=== PATIENT | male | born 1940 | race Caucasian/White ===

== ENCOUNTER 2021-01-27 09:52 | Inpatient (IN) ==
[2021-01-27] MEDS ORDERED: Isovue-370 500 ML BOTTLE IVP ONE (10:04)
[2021-01-27 10:32] LABS: Prothrombin Time 11.6 Seconds (9.4-12.1)
[2021-01-27 10:35] LABS: Activated Partial Thrombo Time 33.8 Seconds (26.0-36.0); Hematocrit 44.2 % (37.5-50.1); Hemoglobin 14.9 g/dL (12.9-16.9); Mean Corpuscular HGB Conc 33.7 g/dL (31.6-35.5); Mean Corpuscular Hemoglobin 31.8 pg (28.0-33.3); Mean Corpuscular Volume 94.2 fL (83.0-100.0); Mean Platelet Volume 10.2 fL (9.4-12.4); Platelet Count 240 K/mcL (140-400); Red Blood Count 4.69 M/mcL (4.19-5.50); Red Cell Distribution Width 13.1 % (11.5-14.5); White Blood Count 10.8 K/mcL (4.3-11.1)
[2021-01-27 10:47] LABS: BUN/Creatinine Ratio 17 (6-26); Blood Urea Nitrogen 17 mg/dL (8-23); Calcium 9.4 mg/dL (8.6-10.3); Carbon Dioxide 25 mEq/L (23-29); Chloride 104 mEq/L (98-107); Glucose 156 mg/dL (70-105); Osmolality,Calculated 287 (280-300); Potassium 4.4 mEq/L (3.5-5.1); Sodium 136 mEq/L (136-145); eGFR For African Americans > 60 (> 60); eGFR For Non-African Americans > 60 (> 60)
[2021-01-27 10:48] LABS: Troponin I < 0.03 ng/mL (< 0.04)
[2021-01-27] MEDS ORDERED: Naloxone 0.4 MG/ML INJ IVP PRN (11:39)
[2021-01-27] MEDS ORDERED: Perflutren Lipid Microsphere 1.3 ML in 0.9 % Sodium Chloride 8.7 ML IVP PRN (11:42)
[2021-01-27] MEDS: *HR* Heparin 5,000 UNIT/ML VIAL SQ SCH (16:24)
[2021-01-27] MEDS ORDERED: Ipratropium/Albuterol Neb 3 ML IH PRN (18:15)
[2021-01-28] MEDS: *HR* Heparin 5,000 UNIT/ML VIAL SQ SCH ×4 (00:12→23:36)
[2021-01-28 02:51] LABS: Hematocrit 40.6 % (37.5-50.1); Hemoglobin 13.5 g/dL (12.9-16.9); Immature Granulocytes % 0.5 % (0-4); Lymphocytes % 23.4 %; Mean Corpuscular HGB Conc 33.3 g/dL (31.6-35.5); Mean Corpuscular Hemoglobin 31.4 pg (28.0-33.3); Mean Corpuscular Volume 94.4 fL (83.0-100.0); Mean Platelet Volume 10.2 fL (9.4-12.4); Monocytes % 10.8 %; Platelet Count 223 K/mcL (140-400); Red Cell Distribution Width 13.1 % (11.5-14.5); White Blood Count 8.3 K/mcL (4.3-11.1)
[2021-01-28 02:52] LABS: Basophils # 0.1 K/mcL (0.0-0.2); Basophils % 0.7 %; Eosinophils # 0.5 K/mcL (0.0-0.6); Eosinophils % 5.6 %; Lymphocytes # 1.9 K/mcL (0.6-4.6); Monocytes # 0.9 K/mcL (0.0-1.3); Neutrophils # 4.9 K/mcL (1.6-8.9)
[2021-01-28 03:01] LABS: Estimated Average Glucose 120 mg/dl; Hemoglobin A1C 5.8 %
[2021-01-28 03:09] LABS: BUN/Creatinine Ratio 20 (6-26); Blood Urea Nitrogen 20 mg/dL (8-23); Carbon Dioxide 25 mEq/L (23-29); Chloride 104 mEq/L (98-107); Glucose 99 mg/dL (70-105); Osmolality,Calculated 285 (280-300); Sodium 136 mEq/L (136-145); eGFR For African Americans > 60 (> 60); eGFR For Non-African Americans > 60 (> 60)
[2021-01-28] MEDS: Budesonide/Formoterol 80/4.5 1 PUFF INH IH SCH ×2 (07:26→19:50)
[2021-01-28] MEDS: carvediloL 6.25 MG TABLET PO SCH (17:55)
[2021-01-29] MEDS: Budesonide/Formoterol 80/4.5 1 PUFF INH IH SCH (07:36)
[2021-01-29] MEDS: *HR* Heparin 5,000 UNIT/ML VIAL SQ SCH ×2 (08:17→16:47)
[2021-01-29] MEDS: carvediloL 6.25 MG TABLET PO SCH ×2 (08:17→16:45)
[2021-01-29] MEDS ORDERED: lisinopriL 5 MG TABLET PO SCH (09:00)
[2021-01-29] MEDS ORDERED: 0.9 % Sodium Chloride 500 ML IVC ONE (10:55)
[2021-01-29] MEDS ORDERED: Lidocaine Viscous Oral Soln 15 ML SOLUTION MM PRN (10:55)
[2021-01-29] MEDS: *HR* Midazolam HCl 5 MG/5 ML VIAL IVP PRN ×2 (11:10→11:15)
[2021-01-29] MEDS: *HR* FentaNYL (PF) 100 MCG/2 ML VIAL IVP PRN ×2 (11:10→11:15)
[2021-01-29 15:24] VITALS: BP 142/86; PULSE 92; TEMP 97.7; O2SAT 93
== END 2021-01-29 18:18 | disposition home or self-care (01) | DRG 65 ==
LOC: EMEROOARM 09:52 → 3BNU 09:52 → SUATTDRO 19:42
PROVIDERS: ADMIT Internal Medicine; ATTEND Internal Medicine

== ENCOUNTER 2021-07-02 07:45 | Inpatient (IN) ==
[2021-07-02] MEDS ORDERED: 0.9 % Sodium Chloride 1,000 ML ONE (14:30)
[2021-07-02] MEDS ORDERED: Heparin 1,000 UNITS/500 mL 500 ML ONE ×2 (15:13→15:26)
[2021-07-02] MEDS ORDERED: *HR* Heparin 10,000 UNIT/10 ML VIAL ONE (15:16)
[2021-07-02] MEDS ORDERED: ISOVUE-370 200 ML INFUS..BTL ONE (15:16)
[2021-07-02] MEDS ORDERED: *HR* FentaNYL (PF) 100 MCG/2 ML VIAL ONE (15:23)
[2021-07-02] MEDS ORDERED: *HR* Midazolam HCl 2 MG/2 ML VIAL ONE (15:23)
[2021-07-02] MEDS ORDERED: *HR* Heparin 5,000 UNIT/ML VIAL IVP PRN ×2 (16:58)
[2021-07-02] MEDS ORDERED: Heparin 25,000UNIT/250ML 1/2NS 25,000 UNIT/250 ML IV.SOLN IVC SCH (17:00)
[2021-07-02] MEDS ORDERED: Naloxone 0.4 MG/ML INJ IVP PRN (18:13)
[2021-07-02] MEDS ORDERED: Acetaminophen 325 MG TABLET PO PRN (18:13)
[2021-07-02] MEDS ORDERED: 0.9 % Sodium Chloride 1,000 ML IVC SCH (18:15)
[2021-07-02 18:51] LABS: Basophils % 0.5 %; Eosinophils # 0.2 K/mcL (0.0-0.6); Eosinophils % 2.8 %; Hematocrit 40.7 % (37.5-50.1); Hemoglobin 13.4 g/dL (12.9-16.9); Immature Granulocytes % 0.1 % (0-4); Lymphocytes # 2.2 K/mcL (0.6-4.6); Lymphocytes % 29.4 %; Mean Corpuscular HGB Conc 32.9 g/dL (31.6-35.5); Mean Corpuscular Hemoglobin 30.5 pg (28.0-33.3); Mean Corpuscular Volume 92.5 fL (83.0-100.0); Monocytes # 0.7 K/mcL (0.0-1.3); Monocytes % 8.8 %; Neutrophils # 4.3 K/mcL (1.6-8.9); Platelet Count 219 K/mcL (140-400); Red Cell Distribution Width 13.2 % (11.5-14.5); Segmented Neutrophils % 58.4 %; White Blood Count 7.4 K/mcL (4.3-11.1)
[2021-07-02 18:57] LABS: Estimated Average Glucose 126 mg/dl
[2021-07-02] MEDS ORDERED: Ipratropium/Albuterol Neb 3 ML IH PRN (19:01)
[2021-07-02 19:09] LABS: BUN/Creatinine Ratio 19 (6-26); Blood Urea Nitrogen 17 mg/dL (8-23); Calcium 8.9 mg/dL (8.6-10.3); Carbon Dioxide 27 mEq/L (23-29); Chloride 104 mEq/L (98-107); Cholesterol 121 mg/dL (< 200); Glucose 93 mg/dL (70-105); HDL Cholesterol 41 mg/dL (40-59); LDL Cholesterol,Calculated 71 mg/dL (< 100); Magnesium 1.9 mg/dL (1.6-2.6); Osmolality,Calculated 285 (280-300); Phosphorous 3.1 mg/dL (2.7-4.5); Potassium 3.9 mEq/L (3.5-5.1); Sodium 137 mEq/L (136-145); Triglycerides 44 mg/dL (< 150); eGFR For African Americans > 60 (> 60); eGFR For Non-African Americans > 60 (> 60)
[2021-07-02] MEDS ORDERED: Budesonide/Formoterol 160/4.5 1 PUFF INH IH ONE (19:30)
[2021-07-02] MEDS: Budesonide/Formoterol 160/4.5 1 PUFF INH IH SCH (19:34)
[2021-07-02 20:44] LABS: INR 1.3; Prothrombin Time 14.7 Seconds (9.4-12.1)
[2021-07-02 21:07] LABS: Activated Partial Thrombo Time > 360.0 Seconds (26.0-36.0)
[2021-07-02 21:42] LABS: Bilirubin,Urine Negative (Negative); Blood,Urine Large (Negative); Clarity,Urine Clear (Clear); Color,Urine Yellow (Yellow); Glucose,Urine (UA) Normal (Normal); Ketones,Urine Negative (Negative); Leukocyte Esterase,Urine Negative (Negative); Mucus,Urine Few per lpf (None-Few); Nitrite,Urine Negative (Negative); Protein,Urine 50 mg/dL (Neg-Trace); RBC,Urine TNTC per hpf (0-3); Specific Gravity,Urine > 1.030 (1.010-1.025); Squamous Epithelial Cell,Urine Few per hpf (None-Few)
[2021-07-02] MEDS: Chlorhexidine Rinse 15 ML MOUTHWASH MM SCH (21:42)
[2021-07-02 23:09] LABS: Adenovirus Not Detected (Not Detect); Coronavirus 229E Not Detected (Not Detect); Coronavirus HKU1 Not Detected (Not Detect); Coronavirus NL63 Not Detected (Not Detect); Coronavirus OC43 Not Detected (Not Detect); Human Metapneumovirus Not Detected (Not Detect); SARS-CoV-2 Not Detected (Not Detect)
[2021-07-02 23:10] LABS: Bordetella Pertussis Not Detected (Not Detect); Chlamydophila pneumoniae Not Detected (Not Detect); Human Rhinovirus/Enterovirus Not Detected (Not Detect); Influenza A Subtype 2009 H1 Not Detected (Not Detect); Influenza B Not Detected (Not Detect); Mycoplasma pneumoniae Not Detected (Not Detect); Parainfluenza Virus 1 Not Detected (Not Detect); Parainfluenza Virus 2 Not Detected (Not Detect); Parainfluenza Virus 3 Not Detected (Not Detect); Parainfluenza Virus 4 Not Detected (Not Detect); Respiratory Syncytial Virus Not Detected (Not Detect)
[2021-07-03 01:13] LABS: Basophils # 0.1 K/mcL (0.0-0.2); Basophils % 0.6 %; Eosinophils # 0.4 K/mcL (0.0-0.6); Eosinophils % 3.8 %; Hematocrit 40.9 % (37.5-50.1); Hemoglobin 13.4 g/dL (12.9-16.9); Immature Granulocytes % 0.2 % (0-4); Lymphocytes % 21.3 %; Mean Corpuscular HGB Conc 32.8 g/dL (31.6-35.5); Mean Corpuscular Hemoglobin 30.6 pg (28.0-33.3); Mean Corpuscular Volume 93.4 fL (83.0-100.0); Mean Platelet Volume 10.2 fL (9.4-12.4); Monocytes # 0.8 K/mcL (0.0-1.3); Monocytes % 8.8 %; Neutrophils # 6.2 K/mcL (1.6-8.9); Platelet Count 207 K/mcL (140-400); Red Blood Count 4.38 M/mcL (4.19-5.50); Red Cell Distribution Width 13.3 % (11.5-14.5); Segmented Neutrophils % 65.3 %; White Blood Count 9.5 K/mcL (4.3-11.1)
[2021-07-03 01:33] LABS: BUN/Creatinine Ratio 16 (6-26); Blood Urea Nitrogen 21 mg/dL (8-23); Calcium 9.1 mg/dL (8.6-10.3); Carbon Dioxide 28 mEq/L (23-29); Chloride 104 mEq/L (98-107); Glucose 107 mg/dL (70-105); Magnesium 1.9 mg/dL (1.6-2.6); Osmolality,Calculated 287 (280-300); Phosphorous 3.7 mg/dL (2.7-4.5); Sodium 137 mEq/L (136-145); eGFR For African Americans > 60 (> 60); eGFR For Non-African Americans 53 (> 60)
[2021-07-03] MEDS ORDERED: Aspirin 81 MG TAB.CHEW PO ONE (06:00)
[2021-07-03] MEDS: Chlorhexidine Rinse 15 ML MOUTHWASH MM SCH ×2 (06:01→21:00)
[2021-07-03] MEDS ORDERED: NiCARdipine 2.5 MG/10 ML Syringe IVPB ONE (06:14)
[2021-07-03] MEDS ORDERED: Protamine Sulfate 250 MG/25 ML VIAL IVP ONE (06:18)
[2021-07-03] MEDS ORDERED: D5% in Water 500 ML ONE (06:18)
[2021-07-03] MEDS ORDERED: *HR* Phenylephrine 10 MG/ML VIAL ONE ×2 (06:19→10:37)
[2021-07-03] MEDS ORDERED: niCARdipine 40 MG/200 ML MLS IVC ONE (06:19)
[2021-07-03] MEDS ORDERED: *HR* Rocuronium Bromide 50 MG/5 ML VIAL ONE (06:19)
[2021-07-03] MEDS ORDERED: *HR* Etomidate 20 MG/10 ML AMPUL IVP ONE (06:24)
[2021-07-03] MEDS ORDERED: Tranexamic Acid 1,000 MG/10 ML VIAL ONE (06:24)
[2021-07-03] MEDS ORDERED: *HR* DOBUTamine HCl 250 MG/20 ML VIAL ONE (06:24)
[2021-07-03] MEDS ORDERED: Calcium Gluconate 1,000 MG/10 ML VIAL ONE (06:38)
[2021-07-03] MEDS ORDERED: Vancomycin 1,000 MG VIAL ONE (06:39)
[2021-07-03] MEDS ORDERED: Papaverine 60 MG/2 ML VIAL IVP ONE (06:39)
[2021-07-03] MEDS ORDERED: *HR* Midazolam HCl 5 MG/5 ML VIAL IVP ONE (06:43)
[2021-07-03] MEDS ORDERED: *HR* FentaNYL (PF) 250 MCG/5 ML VIAL ONE (06:43)
[2021-07-03] MEDS ORDERED: EPHEDrine 50 MG/ML VIAL ONE (06:43)
[2021-07-03] MEDS ORDERED: Heparin 15,000 UNIT in 0.9 % Sodium Chloride 500 ML IV ONE (07:45)
[2021-07-03] MEDS ORDERED: del Nido Cardioplegia Solution PF ONE (07:45)
[2021-07-03] MEDS ORDERED: del Nido Cardioplegia Solution PF SCH (07:45)
[2021-07-03] MEDS ORDERED: Buckersberg's Blood Cardioplegia PF SCH (07:45)
[2021-07-03] MEDS ORDERED: Norepinephrine 4 MG in 0.9 % Sodium Chloride 250 ML IVC PRN (07:45)
[2021-07-03] MEDS ORDERED: CeFAZolin Syr 2,000MG/20 ML 2,000 MG/20 ML SYRINGE IVPB ONE (08:00)
[2021-07-03] MEDS ORDERED: NON-FORMULARY MEDICATION 1 EACH EACH (Umeclidinium Bromide [Incruse Ellipta] 62.5 MCG Blst IH SCH (09:00)
[2021-07-03] MEDS: Tiotropium 10 INH DOSE IH SCH (09:19)
[2021-07-03] MEDS: Budesonide/Formoterol 160/4.5 1 PUFF INH IH SCH ×2 (09:20→20:06)
[2021-07-03 09:52] LABS: ABG Base Excess 0 mEq/L (-2 to 3); ABG Chloride 104 mEq/L (98-107); ABG Glucose 123 mg/dL (60-95); ABG HCO3 27 mEq/L (21-27); ABG Ionized Calcium 1.26 mmol/L (1.15-1.35); ABG Oxygen Saturation 98 % (95-98); ABG PCO2 52 mmHg (35-45); ABG PH 7.32 pH Units (7.32-7.45); ABG PO2 117 mmHg (85-104); ABG TCO2 29 mEq/L (20-26)
[2021-07-03] MEDS ORDERED: Albumin Human 5% 50.0 GM/1,000 ML IV.SOLN ONE (10:11)
[2021-07-03 10:21] LABS: ABG Base Excess -2 mEq/L (-2 to 3); ABG Chloride 104 mEq/L (98-107); ABG Glucose 167 mg/dL (60-95); ABG HCO3 24 mEq/L (21-27); ABG Ionized Calcium 1.22 mmol/L (1.15-1.35); ABG Oxygen Saturation 99 % (95-98); ABG PCO2 44 mmHg (35-45); ABG PH 7.34 pH Units (7.32-7.45); ABG PO2 141 mmHg (85-104); ABG TCO2 25 mEq/L (20-26)
[2021-07-03] MEDS ORDERED: Albumin Human 5% 12.5 GM/250 ML IV.SOLN ONE (11:11)
[2021-07-03 11:21] LABS: ABG Base Excess -3 mEq/L (-2 to 3); ABG Chloride 104 mEq/L (98-107); ABG Glucose 209 mg/dL (60-95); ABG HCO3 23 mEq/L (21-27); ABG Ionized Calcium 1.21 mmol/L (1.15-1.35); ABG Oxygen Saturation 100 % (95-98); ABG PCO2 41 mmHg (35-45); ABG PH 7.36 pH Units (7.32-7.45); ABG PO2 189 mmHg (85-104); ABG TCO2 24 mEq/L (20-26)
[2021-07-03] MEDS ORDERED: *HR* Vasopressin 20 UNIT/ML VIAL ONE (11:31)
[2021-07-03 11:42] LABS: ABG Base Excess -6 mEq/L (-2 to 3); ABG Chloride 107 mEq/L (98-107); ABG Glucose 208 mg/dL (60-95); ABG HCO3 21 mEq/L (21-27); ABG Ionized Calcium 1.15 mmol/L (1.15-1.35); ABG Oxygen Saturation 94 % (95-98); ABG PCO2 44 mmHg (35-45); ABG PH 7.28 pH Units (7.32-7.45); ABG PO2 81 mmHg (85-104); ABG TCO2 22 mEq/L (20-26)
[2021-07-03] MEDS: Albumin Human 5% 12.5 GM/250 ML IV.SOLN IVPB PRN ×6 (12:35→22:59)
[2021-07-03 12:53] LABS: ABG Base Excess -2 mEq/L (-2 to 3); ABG HCO3 24 mEq/L (21-27); ABG Oxygen Saturation 92 % (95-98); ABG PCO2 43 mmHg (35-45); ABG PH 7.35 pH Units (7.32-7.45); ABG PO2 66 mmHg (85-104); ABG TCO2 25 mEq/L (20-26); Blood Gas Modality ASSIST CONTROL; Blood Gas VT 500 cc
[2021-07-03] MEDS ORDERED: *HR* Dextrose 50 % in Water (Syg) 50 ML SYRINGE IVP PRN (13:04)
[2021-07-03] MEDS ORDERED: Potassium Chloride 40 MEQ/200 ML BAG IVPB PRN (13:04)
[2021-07-03] MEDS ORDERED: Calcium Gluconate 1gm/50mL 1 GM/50 ML BAG IVPB PRN (13:04)
[2021-07-03] MEDS ORDERED: *HR* Promethazine 25 MG/ML VIAL IM PRN (13:04)
[2021-07-03] MEDS ORDERED: Ondansetron 4 MG/2 ML VIAL IVP PRN (13:04)
[2021-07-03] MEDS ORDERED: Insulin Regular, Human 100 UNIT/ML IV PRN (13:04)
[2021-07-03 13:22] LABS: Basophils % 0.2 %; Eosinophils # 0.2 K/mcL (0.0-0.6); Eosinophils % 1.6 %; Hematocrit 30.9 % (37.5-50.1); Immature Granulocytes % 0.6 % (0-4); Lymphocytes # 1.4 K/mcL (0.6-4.6); Lymphocytes % 9.7 %; Mean Corpuscular Hemoglobin 30.3 pg (28.0-33.3); Mean Corpuscular Volume 94.5 fL (83.0-100.0); Mean Platelet Volume 10.2 fL (9.4-12.4); Monocytes # 0.9 K/mcL (0.0-1.3); Monocytes % 6.6 %; Neutrophils # 11.5 K/mcL (1.6-8.9); Platelet Count 132 K/mcL (140-400); Red Blood Count 3.27 M/mcL (4.19-5.50); Red Cell Distribution Width 13.2 % (11.5-14.5); Segmented Neutrophils % 81.3 %; White Blood Count 14.2 K/mcL (4.3-11.1)
[2021-07-03 13:25] LABS: Hemoglobin 9.9 g/dL (12.9-16.9)
[2021-07-03 13:31] LABS: ABG Base Excess -4 mEq/L (-2 to 3); ABG HCO3 22 mEq/L (21-27); ABG Oxygen Saturation 99 % (95-98); ABG PCO2 44 mmHg (35-45); ABG PH 7.31 pH Units (7.32-7.45); ABG PO2 158 mmHg (85-104); ABG TCO2 24 mEq/L (20-26)
[2021-07-03 13:34] LABS: INR 1.4; Prothrombin Time 15.5 Seconds (9.4-12.1)
[2021-07-03 13:37] LABS: Activated Partial Thrombo Time 29.7 Seconds (26.0-36.0)
[2021-07-03 13:45] LABS: BUN/Creatinine Ratio 22 (6-26); Blood Urea Nitrogen 22 mg/dL (8-23); Calcium 7.9 mg/dL (8.6-10.3); Carbon Dioxide 23 mEq/L (23-29); Chloride 107 mEq/L (98-107); Glucose 180 mg/dL (70-105); Magnesium 1.5 mg/dL (1.6-2.6); Osmolality,Calculated 292 (280-300); Sodium 137 mEq/L (136-145); eGFR For African Americans > 60 (> 60); eGFR For Non-African Americans > 60 (> 60)
[2021-07-03] MEDS: *HR* FentaNYL (PF) 100 MCG/2 ML VIAL IVP PRN ×4 (14:25→22:22)
[2021-07-03] MEDS: Calcium Gluconate 1gm/50mL 1 GM/50 ML BAG IVPB PRN ×3 (14:42→16:06)
[2021-07-03] MEDS: CeFAZolin 2 GM/120 ML BAG IVPB SCH (16:07)
[2021-07-03 16:35] LABS: ABG Base Excess -2 mEq/L (-2 to 3); ABG HCO3 23 mEq/L (21-27); ABG Oxygen Saturation 96 % (95-98); ABG PCO2 37 mmHg (35-45); ABG PO2 85 mmHg (85-104); ABG TCO2 24 mEq/L (20-26); Blood Gas Modality ASSIST CONTROL; Blood Gas VT 500 cc
[2021-07-03] MEDS ORDERED: Heparin 1,000 UNITS/500 mL IV.SOLN IR ONE (16:59)
[2021-07-03] MEDS ORDERED: *HR* Heparin 10,000 UNIT/10 ML VIAL IR ONE (16:59)
[2021-07-03] MEDS ORDERED: D5% in Water 250 ML IV BAG IV ONE (16:59)
[2021-07-03] MEDS: *HR* OxyCODONE/APAP 5/325 TABLET PO PRN (18:01)
[2021-07-03] MEDS: Norepinephrine 4 MG/254 ML IV.SOLN IVC SCH (18:35)
[2021-07-03 20:53] LABS: ABG Base Excess -2 mEq/L (-2 to 3); ABG HCO3 23 mEq/L (21-27); ABG Oxygen Saturation 93 % (95-98); ABG PCO2 39 mmHg (35-45); ABG PH 7.37 pH Units (7.32-7.45); ABG PO2 69 mmHg (85-104); ABG TCO2 24 mEq/L (20-26); Blood Gas Pressure Support 7 cm H2O
[2021-07-03 22:52] LABS: ABG Base Excess -2 mEq/L (-2 to 3); ABG HCO3 23 mEq/L (21-27); ABG Oxygen Saturation 95 % (95-98); ABG PCO2 38 mmHg (35-45); ABG PH 7.38 pH Units (7.32-7.45); ABG PO2 78 mmHg (85-104); ABG TCO2 24 mEq/L (20-26)
[2021-07-04] MEDS: *HR* OxyCODONE/APAP 5/325 TABLET PO PRN ×3 (00:11→11:09)
[2021-07-04] MEDS: CeFAZolin 2 GM/120 ML BAG IVPB SCH (00:11)
[2021-07-04] MEDS: *HR* FentaNYL (PF) 100 MCG/2 ML VIAL IVP PRN (02:10)
[2021-07-04 03:32] LABS: Basophils % 0.3 %; Eosinophils % 0.1 %; Hematocrit 24.1 % (37.5-50.1); Immature Granulocytes % 0.3 % (0-4); Lymphocytes # 0.8 K/mcL (0.6-4.6); Lymphocytes % 9.4 %; Mean Corpuscular HGB Conc 33.2 g/dL (31.6-35.5); Mean Corpuscular Hemoglobin 30.4 pg (28.0-33.3); Mean Corpuscular Volume 91.6 fL (83.0-100.0); Monocytes # 0.9 K/mcL (0.0-1.3); Monocytes % 9.9 %; Neutrophils # 7.2 K/mcL (1.6-8.9); Platelet Count 108 K/mcL (140-400); Red Blood Count 2.63 M/mcL (4.19-5.50); Red Cell Distribution Width 13.4 % (11.5-14.5)
[2021-07-04 03:43] LABS: INR 1.4; Prothrombin Time 15.3 Seconds (9.4-12.1)
[2021-07-04 03:45] LABS: Activated Partial Thrombo Time 27.3 Seconds (26.0-36.0)
[2021-07-04 03:49] LABS: BUN/Creatinine Ratio 20 (6-26); Blood Urea Nitrogen 21 mg/dL (8-23); Calcium 8.5 mg/dL (8.6-10.3); Carbon Dioxide 25 mEq/L (23-29); Chloride 106 mEq/L (98-107); Glucose 140 mg/dL (70-105); Magnesium 1.7 mg/dL (1.6-2.6); Osmolality,Calculated 287 (280-300); Phosphorous 3.2 mg/dL (2.7-4.5); Potassium 3.7 mEq/L (3.5-5.1); Sodium 136 mEq/L (136-145); eGFR For African Americans > 60 (> 60); eGFR For Non-African Americans > 60 (> 60)
[2021-07-04] MEDS ORDERED: Amiodarone Premix 150 MG/100 ML BAG IVPB ONE (05:58)
[2021-07-04] MEDS ORDERED: Albumin Human 5% 12.5 GM/250 ML IV.SOLN IVPB ONE (06:08)
[2021-07-04] MEDS ORDERED: Albumin Human 5% 12.5 GM/250 ML IV.SOLN ONE (06:11)
[2021-07-04] MEDS: Norepinephrine 4 MG/254 ML IV.SOLN IVC SCH ×3 (06:13→23:09)
[2021-07-04] MEDS ORDERED: 0.9 % Sodium Chloride 250 ML ONE (06:27)
[2021-07-04] MEDS: Budesonide/Formoterol 160/4.5 1 PUFF INH IH SCH ×2 (07:57→20:58)
[2021-07-04] MEDS: Tiotropium 10 INH DOSE IH SCH (07:59)
[2021-07-04] MEDS: Chlorhexidine Rinse 15 ML MOUTHWASH MM SCH ×2 (08:48→20:30)
[2021-07-04] MEDS ORDERED: Aspirin Enteric Coated 81 MG Tablet PO SCH (09:00)
[2021-07-04] MEDS ORDERED: Pantoprazole 40 MG VIAL IVP SCH (09:00)
[2021-07-04] MEDS ORDERED: Furosemide 40 MG/4 ML VIAL IVP ONE (09:30)
[2021-07-04] MEDS ORDERED: Bumetanide 1 MG/4 ML VIAL IVP ONE (09:30)
[2021-07-04] MEDS ORDERED: Insulin LISPRO 300 UNITS/3 ML VIAL SUBQ SCH ×2 (16:30→21:00)
[2021-07-04] MEDS: *HR* Heparin 5,000 UNIT/ML VIAL SQ SCH (23:09)
[2021-07-05] MEDS: *HR* OxyCODONE/APAP 5/325 TABLET PO PRN (01:36)
[2021-07-05 03:36] LABS: Basophils % 0.1 %
[2021-07-05 03:38] LABS: Eosinophils # 0.1 K/mcL (0.0-0.6); Eosinophils % 1.4 %; Hematocrit 25.2 % (37.5-50.1); Hemoglobin 8.4 g/dL (12.9-16.9); Immature Granulocytes % 0.4 % (0-4); Immature Platelets 5.9 % (1.1-6.1); Lymphocytes % 12.7 %; Mean Corpuscular HGB Conc 33.3 g/dL (31.6-35.5); Mean Corpuscular Hemoglobin 30.1 pg (28.0-33.3); Mean Corpuscular Volume 90.3 fL (83.0-100.0); Monocytes # 0.9 K/mcL (0.0-1.3); Neutrophils # 5.8 K/mcL (1.6-8.9); Platelet Count 107 K/mcL (140-400); Red Blood Count 2.79 M/mcL (4.19-5.50); Red Cell Distribution Width 14.6 % (11.5-14.5); Segmented Neutrophils % 74.4 %; White Blood Count 7.8 K/mcL (4.3-11.1)
[2021-07-05 03:56] LABS: BUN/Creatinine Ratio 22 (6-26); Blood Urea Nitrogen 22 mg/dL (8-23); Calcium 8.1 mg/dL (8.6-10.3); Carbon Dioxide 27 mEq/L (23-29); Chloride 103 mEq/L (98-107); Glucose 129 mg/dL (70-105); Magnesium 2.1 mg/dL (1.6-2.6); Osmolality,Calculated 283 (280-300); Potassium 3.7 mEq/L (3.5-5.1); Sodium 134 mEq/L (136-145); eGFR For African Americans > 60 (> 60); eGFR For Non-African Americans > 60 (> 60)
[2021-07-05] MEDS: *HR* Heparin 5,000 UNIT/ML VIAL SQ SCH ×3 (05:37→22:00)
[2021-07-05] MEDS: Budesonide/Formoterol 160/4.5 1 PUFF INH IH SCH (08:03)
[2021-07-05] MEDS ORDERED: Acetaminophen 325 MG TABLET PO PRN (08:04)
[2021-07-05] MEDS ORDERED: Naloxone 0.4 MG/ML INJ IVP PRN (08:04)
[2021-07-05] MEDS ORDERED: Ondansetron 4 MG/2 ML VIAL IVP PRN (08:04)
[2021-07-05] MEDS ORDERED: *HR* OxyCODONE/APAP 5/325 TABLET PO PRN (08:04)
[2021-07-05] MEDS ORDERED: *HR* Dextrose 50 % in Water (Syg) 50 ML SYRINGE IVP PRN (08:04)
[2021-07-05] MEDS: Tiotropium 10 INH DOSE IH SCH (08:06)
[2021-07-05] MEDS: Aspirin Enteric Coated 81 MG Tablet PO SCH (08:48)
[2021-07-05] MEDS ORDERED: Pantoprazole 40 MG VIAL IVP SCH (09:00)
[2021-07-05] MEDS: Insulin LISPRO 300 UNITS/3 ML VIAL SUBQ SCH ×3 (12:37→19:56)
[2021-07-05] MEDS ORDERED: Furosemide 40 MG in 0.9 % Sodium Chloride 50 ML IV ONE (16:39)
[2021-07-06] MEDS: *HR* Heparin 5,000 UNIT/ML VIAL SQ SCH ×3 (05:20→21:43)
[2021-07-06 05:31] LABS: Basophils % 0.2 %; Eosinophils # 0.3 K/mcL (0.0-0.6); Eosinophils % 3.5 %; Hematocrit 27.1 % (37.5-50.1); Hemoglobin 8.8 g/dL (12.9-16.9); Immature Granulocytes % 0.7 % (0-4); Lymphocytes # 1.1 K/mcL (0.6-4.6); Mean Corpuscular HGB Conc 32.5 g/dL (31.6-35.5); Mean Corpuscular Hemoglobin 29.4 pg (28.0-33.3); Mean Corpuscular Volume 90.6 fL (83.0-100.0); Monocytes % 10.9 %; Neutrophils # 6.9 K/mcL (1.6-8.9); Platelet Count 138 K/mcL (140-400); Red Blood Count 2.99 M/mcL (4.19-5.50); Red Cell Distribution Width 14.4 % (11.5-14.5); Segmented Neutrophils % 72.7 %; White Blood Count 9.5 K/mcL (4.3-11.1)
[2021-07-06 05:51] LABS: BUN/Creatinine Ratio 21 (6-26); Blood Urea Nitrogen 22 mg/dL (8-23); Calcium 8.5 mg/dL (8.6-10.3); Carbon Dioxide 28 mEq/L (23-29); Chloride 100 mEq/L (98-107); Glucose 119 mg/dL (70-105); Magnesium 1.9 mg/dL (1.6-2.6); Osmolality,Calculated 280 (280-300); Potassium 3.7 mEq/L (3.5-5.1); Sodium 133 mEq/L (136-145); eGFR For African Americans > 60 (> 60); eGFR For Non-African Americans > 60 (> 60)
[2021-07-06] MEDS: Insulin LISPRO 300 UNITS/3 ML VIAL SUBQ SCH ×4 (08:04→21:43)
[2021-07-06] MEDS: Aspirin Enteric Coated 81 MG Tablet PO SCH (08:56)
[2021-07-06] MEDS: polyethylene glycoL 3350 17 GM POWD.PACK PO SCH (14:55)
[2021-07-07] MEDS: *HR* Heparin 5,000 UNIT/ML VIAL SQ SCH ×3 (05:25→20:40)
[2021-07-07] MEDS: Insulin LISPRO 300 UNITS/3 ML VIAL SUBQ SCH ×4 (07:52→20:40)
[2021-07-07] MEDS: polyethylene glycoL 3350 17 GM POWD.PACK PO SCH (07:53)
[2021-07-07] MEDS: Aspirin Enteric Coated 81 MG Tablet PO SCH (07:53)
[2021-07-07 08:53] LABS: Basophils % 0.4 %; Eosinophils # 0.4 K/mcL (0.0-0.6); Eosinophils % 5.6 %; Hematocrit 28.1 % (37.5-50.1); Hemoglobin 9.3 g/dL (12.9-16.9); Immature Granulocytes % 0.5 % (0-4); Lymphocytes # 1.1 K/mcL (0.6-4.6); Lymphocytes % 14.6 %; Mean Corpuscular HGB Conc 33.1 g/dL (31.6-35.5); Mean Corpuscular Hemoglobin 29.7 pg (28.0-33.3); Mean Corpuscular Volume 89.8 fL (83.0-100.0); Mean Platelet Volume 10.4 fL (9.4-12.4); Monocytes # 0.7 K/mcL (0.0-1.3); Monocytes % 8.7 %; Neutrophils # 5.4 K/mcL (1.6-8.9); Platelet Count 192 K/mcL (140-400); Red Blood Count 3.13 M/mcL (4.19-5.50); Red Cell Distribution Width 14.4 % (11.5-14.5); Segmented Neutrophils % 70.2 %; White Blood Count 7.6 K/mcL (4.3-11.1)
[2021-07-07 09:09] LABS: BUN/Creatinine Ratio 22 (6-26); Blood Urea Nitrogen 23 mg/dL (8-23); Calcium 8.7 mg/dL (8.6-10.3); Carbon Dioxide 26 mEq/L (23-29); Chloride 100 mEq/L (98-107); Glucose 159 mg/dL (70-105); Magnesium 1.9 mg/dL (1.6-2.6); Osmolality,Calculated 281 (280-300); Potassium 3.5 mEq/L (3.5-5.1); Sodium 132 mEq/L (136-145); eGFR For African Americans > 60 (> 60); eGFR For Non-African Americans > 60 (> 60)
[2021-07-07] MEDS: Ipratropium/Albuterol Neb 3 ML IH PRN (20:12)
[2021-07-08 02:52] LABS: Basophils % 0.6 %; Eosinophils # 0.5 K/mcL (0.0-0.6); Eosinophils % 7.5 %; Hematocrit 23.9 % (37.5-50.1); Immature Granulocytes % 0.6 % (0-4); Lymphocytes # 1.2 K/mcL (0.6-4.6); Lymphocytes % 18.7 %; Mean Corpuscular HGB Conc 33.5 g/dL (31.6-35.5); Mean Corpuscular Hemoglobin 29.9 pg (28.0-33.3); Mean Corpuscular Volume 89.2 fL (83.0-100.0); Mean Platelet Volume 10.6 fL (9.4-12.4); Monocytes # 0.8 K/mcL (0.0-1.3); Monocytes % 11.9 %; Platelet Count 198 K/mcL (140-400); Red Blood Count 2.68 M/mcL (4.19-5.50); Red Cell Distribution Width 14.2 % (11.5-14.5); Segmented Neutrophils % 60.7 %; White Blood Count 6.5 K/mcL (4.3-11.1)
[2021-07-08 03:06] LABS: BUN/Creatinine Ratio 21 (6-26); Blood Urea Nitrogen 21 mg/dL (8-23); Calcium 8.3 mg/dL (8.6-10.3); Carbon Dioxide 29 mEq/L (23-29); Chloride 101 mEq/L (98-107); Glucose 107 mg/dL (70-105); Magnesium 2.3 mg/dL (1.6-2.6); Osmolality,Calculated 281 (280-300); Potassium 3.7 mEq/L (3.5-5.1); Sodium 134 mEq/L (136-145); eGFR For African Americans > 60 (> 60); eGFR For Non-African Americans > 60 (> 60)
[2021-07-08] MEDS: *HR* Heparin 5,000 UNIT/ML VIAL SQ SCH ×3 (06:06→21:15)
[2021-07-08] MEDS: Insulin LISPRO 300 UNITS/3 ML VIAL SUBQ SCH ×4 (07:24→21:15)
[2021-07-08] MEDS: carvediloL 6.25 MG TABLET PO SCH ×2 (07:36→18:03)
[2021-07-08] MEDS: Aspirin Enteric Coated 81 MG Tablet PO SCH (07:37)
[2021-07-08 09:33] LABS: Hematocrit 26.2 % (37.5-50.1); Hemoglobin 8.4 g/dL (12.9-16.9)
[2021-07-08] MEDS: polyethylene glycoL 3350 17 GM POWD.PACK PO SCH (10:08)
[2021-07-08] MEDS: Ipratropium/Albuterol Neb 3 ML IH PRN (10:55)
[2021-07-09] MEDS: *HR* Heparin 5,000 UNIT/ML VIAL SQ SCH ×3 (05:56→20:59)
[2021-07-09 06:41] LABS: Basophils % 0.5 %; Eosinophils # 0.5 K/mcL (0.0-0.6); Eosinophils % 6.7 %; Hematocrit 26.1 % (37.5-50.1); Hemoglobin 8.5 g/dL (12.9-16.9); Immature Granulocytes % 0.8 % (0-4); Lymphocytes # 1.2 K/mcL (0.6-4.6); Lymphocytes % 15.9 %; Mean Corpuscular HGB Conc 32.6 g/dL (31.6-35.5); Mean Corpuscular Hemoglobin 29.4 pg (28.0-33.3); Mean Corpuscular Volume 90.3 fL (83.0-100.0); Mean Platelet Volume 10.6 fL (9.4-12.4); Monocytes # 0.9 K/mcL (0.0-1.3); Monocytes % 11.8 %; Neutrophils # 4.7 K/mcL (1.6-8.9); Platelet Count 248 K/mcL (140-400); Red Blood Count 2.89 M/mcL (4.19-5.50); Red Cell Distribution Width 14.4 % (11.5-14.5); Segmented Neutrophils % 64.3 %; White Blood Count 7.3 K/mcL (4.3-11.1)
[2021-07-09 07:04] LABS: BUN/Creatinine Ratio 23 (6-26); Blood Urea Nitrogen 22 mg/dL (8-23); Calcium 8.4 mg/dL (8.6-10.3); Carbon Dioxide 27 mEq/L (23-29); Chloride 100 mEq/L (98-107); Glucose 112 mg/dL (70-105); Magnesium 2.1 mg/dL (1.6-2.6); Osmolality,Calculated 280 (280-300); Potassium 4.2 mEq/L (3.5-5.1); Sodium 133 mEq/L (136-145); eGFR For African Americans > 60 (> 60); eGFR For Non-African Americans > 60 (> 60)
[2021-07-09] MEDS: Ipratropium/Albuterol Neb 3 ML IH PRN ×3 (08:15→20:00)
[2021-07-09] MEDS: Insulin LISPRO 300 UNITS/3 ML VIAL SUBQ SCH ×4 (09:11→19:49)
[2021-07-09] MEDS: polyethylene glycoL 3350 17 GM POWD.PACK PO SCH (09:16)
[2021-07-09] MEDS: Aspirin Enteric Coated 81 MG Tablet PO SCH (09:17)
[2021-07-09] MEDS: carvediloL 6.25 MG TABLET PO SCH ×2 (09:17→17:14)
[2021-07-09] MEDS ORDERED: Melatonin 3 MG TABLET PO PRN (22:29)
[2021-07-10 02:09] LABS: Basophils % 0.4 %; Eosinophils # 0.6 K/mcL (0.0-0.6); Eosinophils % 7.5 %; Hematocrit 24.1 % (37.5-50.1); Lymphocytes # 1.2 K/mcL (0.6-4.6); Lymphocytes % 15.3 %; Mean Corpuscular HGB Conc 33.2 g/dL (31.6-35.5); Mean Corpuscular Hemoglobin 29.6 pg (28.0-33.3); Mean Corpuscular Volume 89.3 fL (83.0-100.0); Mean Platelet Volume 10.2 fL (9.4-12.4); Monocytes # 0.8 K/mcL (0.0-1.3); Monocytes % 10.9 %; Platelet Count 251 K/mcL (140-400); Red Cell Distribution Width 14.1 % (11.5-14.5); Segmented Neutrophils % 64.9 %; White Blood Count 7.7 K/mcL (4.3-11.1)
[2021-07-10 02:28] LABS: BUN/Creatinine Ratio 16 (6-26); Blood Urea Nitrogen 18 mg/dL (8-23); Calcium 8.4 mg/dL (8.6-10.3); Carbon Dioxide 26 mEq/L (23-29); Chloride 98 mEq/L (98-107); Glucose 109 mg/dL (70-105); Osmolality,Calculated 272 (280-300); Potassium 4.2 mEq/L (3.5-5.1); Sodium 130 mEq/L (136-145); eGFR For African Americans > 60 (> 60); eGFR For Non-African Americans > 60 (> 60)
[2021-07-10] MEDS: *HR* Heparin 5,000 UNIT/ML VIAL SQ SCH ×3 (06:11→21:41)
[2021-07-10] MEDS: Insulin LISPRO 300 UNITS/3 ML VIAL SUBQ SCH ×4 (07:21→20:09)
[2021-07-10] MEDS: carvediloL 6.25 MG TABLET PO SCH ×2 (07:27→16:53)
[2021-07-10] MEDS: polyethylene glycoL 3350 17 GM POWD.PACK PO SCH (07:27)
[2021-07-10] MEDS: Aspirin Enteric Coated 81 MG Tablet PO SCH (07:27)
[2021-07-10] MEDS ORDERED: Furosemide 20 MG/2 ML VIAL IVP ONE (09:25)
[2021-07-11] MEDS: *HR* Heparin 5,000 UNIT/ML VIAL SQ SCH (05:10)
[2021-07-11 06:23] LABS: Basophils % 0.4 %; Eosinophils # 0.7 K/mcL (0.0-0.6); Eosinophils % 9.6 %; Hematocrit 24.5 % (37.5-50.1); Hemoglobin 7.9 g/dL (12.9-16.9); Immature Granulocytes % 1.4 % (0-4); Lymphocytes # 1.3 K/mcL (0.6-4.6); Lymphocytes % 16.8 %; Mean Corpuscular HGB Conc 32.2 g/dL (31.6-35.5); Mean Corpuscular Hemoglobin 29.2 pg (28.0-33.3); Mean Corpuscular Volume 90.4 fL (83.0-100.0); Mean Platelet Volume 10.3 fL (9.4-12.4); Monocytes # 0.8 K/mcL (0.0-1.3); Monocytes % 10.4 %; Neutrophils # 4.7 K/mcL (1.6-8.9); Platelet Count 305 K/mcL (140-400); Red Blood Count 2.71 M/mcL (4.19-5.50); Red Cell Distribution Width 14.5 % (11.5-14.5); Segmented Neutrophils % 61.4 %; White Blood Count 7.7 K/mcL (4.3-11.1)
[2021-07-11 07:49] LABS: BUN/Creatinine Ratio 21 (6-26); Blood Urea Nitrogen 20 mg/dL (8-23); Calcium 8.4 mg/dL (8.6-10.3); Carbon Dioxide 27 mEq/L (23-29); Chloride 99 mEq/L (98-107); Glucose 101 mg/dL (70-105); Magnesium 1.9 mg/dL (1.6-2.6); Osmolality,Calculated 279 (280-300); Potassium 3.9 mEq/L (3.5-5.1); Sodium 133 mEq/L (136-145); eGFR For African Americans > 60 (> 60); eGFR For Non-African Americans > 60 (> 60)
[2021-07-11] MEDS: Aspirin Enteric Coated 81 MG Tablet PO SCH (09:14)
[2021-07-11] MEDS: polyethylene glycoL 3350 17 GM POWD.PACK PO SCH (09:14)
[2021-07-11] MEDS: carvediloL 6.25 MG TABLET PO SCH (09:14)
[2021-07-11] MEDS: Insulin LISPRO 300 UNITS/3 ML VIAL SUBQ SCH (09:15)
[2021-07-11 10:20] LABS: Influenza A PCR Negative (Negative); Influenza B PCR Negative (Negative); Resp. Syncytial Virus PCR Negative (Negative)
[2021-07-11 10:44] LABS: SARS-CoV-2 by PCR (In House) Negative (Negative)
[2021-07-11 12:29] VITALS: PULSE 83; TEMP 98.3; O2SAT 91
[2021-07-11 14:31] VITALS: BP 124/55
== END 2021-07-11 14:31 ==
LOC: PREOBSVTOIN 09:49 → ICNU 17:28 → SUATTDRO 17:28 → EDSTATUS 07-03 07:45 → 2NNU 07-06 13:29
PROVIDERS: ADMIT Thoracic Surgery (Cardiothoracic Vascular Surgery); ATTEND Family Medicine